=== PATIENT | female | born 1980 | race Caucasian/White ===

== ENCOUNTER 2023-09-13 12:38 | Emergency (ER) | payer OTHER ==
[~2023-09-13] VITALS: Ht 165.1 cm; Wt 70.0 kg
[2023-09-13 12:50] VITALS: BP 168/101; PULSE 78; RESP 20; TEMP 98; O2SAT 98
[2023-09-13] MEDS: ACETAMINOPHEN 500MG TABLET PO ONE (14:03)
[2023-09-13] MEDS ORDERED: IBUP-2029 MT (14:48)
== END 2023-09-13 16:19 | disposition home or self-care (01) ==
LOC: ER 12:38
DX: M25.512 Pain in left shoulder (principal); I10 Essential (primary) hypertension; Z88.0 Allergy status to penicillin; V99.XXXA Unspecified transport accident, initial encounter; Y93.89 Activity, other specified; Y92.89 Other specified places as the place of occurrence of the external cause; Y99.8 Other external cause status
CPT/HCPCS: 73030; 99283